=== PATIENT | male | born 1950 | race Caucasian/White ===

== ENCOUNTER 2018-06-28 16:30 | Inpatient (IN) | payer MEDICARE, OTHER ==
[~2018-06-28] VITALS: Ht 182.9 cm; Wt 110.0 kg
[~2018-06-28 16:30] MED LIST: ATOR40TA PO; DILT180C95 PO; FAMO20TA8 PO; LOSA1TAB15 PO; NAPR-56 PO; QUIN324C PO
[2018-06-28 16:54] LABS: CLARITY,URINE CLOUDY (Clear); COLOR,URINE YELLOW (Yellow); GLUCOSE, URINE NEGATIVE (Neg); KETONES,URINE NEGATIVE (Neg); LEUKOCYTE ESTERASE ,URINE TRACE (Neg); NITRITES, URINE NEGATIVE (Neg); OCCULT BLOOD,URINE MODERATE (Neg); PH,URINE 6.5 (4.8-8.0); PROTEIN,URINE TRACE mg/dl (Neg)
[2018-06-28 17:04] LABS: UA COLLECTION TYPE VOIDED
[2018-06-28 17:11] LABS: SQUAMOUS EPITHELIAL CELL,UR MANY /LPF (FEW)
[2018-06-28 17:14] LABS: BACTERIA,URINE 1+ /HPF (Neg); WBC CLUMPS,URINE FEW /HPF (NEGATIVE)
[2018-06-28 17:16] LABS: BASOPHILS # (AUTO) 0.1 X10'3 (0-0.2); BASOPHILS % (AUTO) 0.6 % (0-1); EOSINOPHILS # (AUTO) 0.2 X10'3 (0-0.9); EOSINOPHILS % (AUTO) 1.3 % (0-6); HEMATOCRIT 44.8 % (42.0-52.0); HEMOGLOBIN 14.3 g/dl (14.0-17.9); LYMPHOCYTES # (AUTO) 1.2 X10'3 (1.1-4.8); LYMPHOCYTES % (AUTO) 9.2 % (21-51); MEAN CORPUSCULAR HGB CONC 31.9 % (33.0-36.5); MEAN CORPUSCULAR VOLUME 90.9 FL (78-98); MEAN PLATELET VOLUME 7.3 FL (7.4-10.4); MONOCYTES # (AUTO) 1.8 X10'3 (0-0.9); MONOCYTES % (AUTO) 13.8 % (2-12); NEUTROPHILS # (AUTO) 9.9 X10'3 (1.8-7.7); NEUTROPHILS % (AUTO) 75.1 % (42-75); PLATELET COUNT 277 X10'3 (140-440); RED BLOOD COUNT 4.93 X10'6 (4.70-6.10); RED CELL DISTRIBUTION WIDTH 12.7 % (11.5-14.5); WHITE BLOOD COUNT 13.2 X10'3 (4.5-11.0)
[2018-06-28 17:31] LABS: INR 2.5 INR; PROTHROMBIN TIME 24.5 SECONDS (9.0-12.0)
[2018-06-28 17:43] LABS: ALANINE AMINOTRANSFERASE 21 U/L (12-78); ALBUMIN 3.1 G/DL (3.4-5.0); ALBUMIN/GLOBULIN RATIO 0.7 (1.1-1.5); ALKALINE PHOSPHATASE 76 IU/L (46-116); ANION GAP 8 (8-16); ASPARTATE AMINO TRANSFERASE 13 U/L (10-37); BILIRUBIN,TOTAL 0.5 MG/DL (0.1-1.0); BLOOD UREA NITROGEN 13 MG/DL (7-18); BUN/CREATININE RATIO 14.9 (5.4-32.0); CALCIUM 8.7 MG/DL (8.5-10.1); CHLORIDE 91 MMOL/L (99-107); CREATININE 0.87 MG/DL (0.60-1.10); GLUCOSE 121 MG/DL (70-104); LIPASE 58 U/L (73-393); POTASSIUM 3.3 MMOL/L (3.5-5.1); SODIUM 129 MMOL/L (135-145); TOTAL CARBON DIOXIDE 29.9 MMOL/L (24-32); TOTAL PROTEIN 7.4 G/DL (6.4-8.2); eGFR 88 ML/MIN
[2018-06-28] MEDS ORDERED: potassium Cl 20 mEq SR tablet PO ONE (18:10)
[2018-06-28] MEDS ORDERED: piperacillin/tazo 4.5gm/100ml 100 ML IV ONE (18:19)
[2018-06-28] MEDS ORDERED: normal saline 1000ML IV soln IV ONE (18:25)
--- NOTE | 2018-06-28 18:30 | NUR ---
pt given deaan. dr. olmos talking w patient and reprots he will need admission for appendicitis. also will need blood cultures.
--- NOTE | 2018-06-28 18:44 | NUR ---
bxc drawn, piv now in place,
--- NOTE | 2018-06-28 18:45 | NUR ---
dr. harris at bedside. pt with stable vs. at bedside also. verbal received for repeat inr. (last drawn at 1647 = 2.5)
[2018-06-28] MEDS ORDERED: morphine 4 MG/ML inj SYRINge IV PRN ×3 (18:50→21:15)
[2018-06-28] MEDS ORDERED: ondansetron/PF 4mg/2ml inj IV PRN (18:50)
[2018-06-28] MEDS ORDERED: labetalol 20mg/4ml (5mg/ml) syringe IV PRN (18:50)
[2018-06-28] MEDS ORDERED: ringers solution, lacted 1,000 ML IV SCH (18:50)
[2018-06-28] MEDS ORDERED: fentaNYL/PF 50MCG/1 ML 2ML syringe IV PRN (18:50)
[2018-06-28] MEDS ORDERED: hydrALAZINE 20mg/ml inj. IV PRN (18:50)
--- NOTE | 2018-06-28 18:50 | NUR ---
per dr. castillo, he will operate on pt tomorrow. he does not need a redraw of inr right now as we will redraw w am labs.
[2018-06-28] MEDS ORDERED: COU5T PO (18:55)
[2018-06-28] MEDS ORDERED: SOTA120T (18:57)
[2018-06-28] MEDS ORDERED: TAMS0.4C32 (18:57)
--- NOTE | 2018-06-28 19:12 | NUR ---
siria bernstein [phone] took all of patients clothes home
[2018-06-28] MEDS ORDERED: morphine 4 MG/ML inj SYRINge IV ONE ×2 (19:30→21:55)
[2018-06-28] MEDS ORDERED: ondansetron/PF 4mg/2ml inj IV ONE (19:30)
[2018-06-28] MEDS ORDERED: temazepam 15mg capsule PO PRN (21:00)
[2018-06-28] MEDS ORDERED: mag hydrox/Alum hydrox/simeth 30ml oral suspension PO PRN (21:15)
[2018-06-28] MEDS ORDERED: bisacodyl 10mg suppository rectal RC PRN (21:15)
[2018-06-28] MEDS ORDERED: potassium cl 20mEq in 1/2 NS 1,000 ML IV SCH (21:15)
[2018-06-28] MEDS ORDERED: acetaminophen 325mg tablet PO PRN ×2 (21:15)
[2018-06-28] MEDS ORDERED: magnesium hydroxide 30ml (MOM) UD suspension PO PRN (21:15)
[2018-06-28] MEDS ORDERED: acetaminophen 650mg rectal suppository RC PRN (21:15)
[2018-06-28] MEDS ORDERED: diphenhydrAMINE 50 mg/ml inj IV PRN (21:15)
[2018-06-28] MEDS ORDERED: diphenhydrAMINE 25mg capsule PO PRN (21:15)
[2018-06-28] MEDS ORDERED: potassium Cl 20 mEq SR tablet PO PRN ×2 (21:25)
[2018-06-28] MEDS: K, MAG and/or Phos replacement - Verify level? MC SCH (21:25)
[2018-06-28] MEDS ORDERED: potassium Cl 40MEQ/NS 500ml 500 ML IV PRN (21:25)
[2018-06-28] MEDS ORDERED: phytonadione inj. 5 MG in normal saline 100ml IV soln 99.5 ML IV ONE (21:40)
--- NOTE | 2018-06-28 21:45 | NUR ---
Received report from Maurizio RN, pt coming from ER.
[2018-06-28] MEDS: pantoprazole 40 MG vial IV SCH (22:03)
[2018-06-28 22:08] LABS: MAGNESIUM 1.6 MG/DL (1.5-2.4); PHOSPHORUS 2.5 MG/DL (2.3-4.5)
[2018-06-28 22:10] LABS: CLARITY,URINE CLEAR (Clear); COLOR,URINE YELLOW (Yellow); GLUCOSE, URINE NEGATIVE (Neg); KETONES,URINE NEGATIVE (Neg); LEUKOCYTE ESTERASE ,URINE SMALL (Neg); NITRITES, URINE NEGATIVE (Neg); OCCULT BLOOD,URINE MODERATE (Neg); PROTEIN,URINE NEGATIVE (Neg); UROBILINOGEN,URINE 0.2 E.U/dL (0.2-1.0)
[2018-06-28 22:16] LABS: UA COLLECTION TYPE CLN CATCH MIDSTREAM
[2018-06-28 22:20] LABS: SQUAMOUS EPITHELIAL CELL,UR MODERATE /LPF (FEW)
[2018-06-28 22:21] LABS: BACTERIA,URINE FEW /HPF (Neg)
[2018-06-28 22:37] VITALS: BP 140/61
[2018-06-28] MEDS: potassium Cl 20mEq in NS 1,000 ML IV SCH (22:51)
[2018-06-28] MEDS: piperacillin/tazo 4.5gm/100ml 100 ML IV SCH (23:54)
[2018-06-29] VITALS (19 sets, daily range): BP systolic 112–140; BP diastolic 40–113
--- NOTE | 2018-06-29 06:28 | NUR ---
Problems reprioritized. Patient report given, questions answered & plan of care reviewed with Melissa MOELLER.
--- NOTE | 2018-06-29 06:33 | NUR ---
Patient in room [facility]. I have received report from Kelly MOELLER and had the opportunity to ask questions and assume patient care.
[2018-06-29 06:41] LABS: INR 1.5 INR; PROTHROMBIN TIME 14.5 SECONDS (9.0-12.0)
[2018-06-29] MEDS ORDERED: LOSARTAN PO SCH (08:00)
[2018-06-29] MEDS: K, MAG and/or Phos replacement - Verify level? MC SCH (08:00)
[2018-06-29] MEDS ORDERED: HYDROCHLOROTHIAZIDE PO SCH (08:00)
[2018-06-29] MEDS ORDERED: SOTALOL HCL SCH (08:00)
[2018-06-29] MEDS: piperacillin/tazo 4.5gm/100ml 100 ML IV SCH ×3 (08:42→23:46)
[2018-06-29] MEDS: tamsulosin 0.4mg capsule PO SCH (08:42)
[2018-06-29] MEDS: losartan 50mg tablet PO SCH (08:43)
[2018-06-29] MEDS: HYDROchlorothiazide 25mg tablet PO SCH (08:43)
[2018-06-29] MEDS: docusate sod 100mg capsule PO SCH ×2 (08:43→20:21)
[2018-06-29] MEDS: pantoprazole 40 MG vial IV SCH (08:44)
[2018-06-29] MEDS: sotalol 80mg tablet PO SCH ×2 (08:44→20:21)
[2018-06-29] MEDS: potassium Cl 20mEq in NS 1,000 ML IV SCH ×3 (09:07→23:47)
[2018-06-29] MEDS ORDERED: BUPIVAcaine/PF 2.5mg/ml (0.25%) 10ml vial ONE (09:19)
[2018-06-29] MEDS ORDERED: midazolam 2 mg/2 ml injection ONE (09:40)
[2018-06-29] MEDS ORDERED: fentaNYL/PF 50MCG/1 ML 2ML syringe ONE (09:40)
[2018-06-29] MEDS ORDERED: sevoflurane 250ml liquid IH ONE (10:44)
[2018-06-29] MEDS ORDERED: ondansetron/PF 4mg/2ml inj ONE (11:01)
[2018-06-29] MEDS ORDERED: propofol inj 20 ML IV ONE (11:01)
[2018-06-29] MEDS ORDERED: LIDOcaine 2% (20mg/ml) 5ml vial ONE (11:01)
[2018-06-29] MEDS ORDERED: dexamethasone sod phosphate 4mg/ml inj. ONE (11:01)
[2018-06-29] MEDS ORDERED: rocuronium 10mg/ml inj IV ONE (11:02)
[2018-06-29] MEDS ORDERED: clindamycin phosphate 150mg/ml inj. ONE (11:34)
[2018-06-29] MEDS ORDERED: gentamicin 40 MG/1 ML inj IJ ONE (11:40)
[2018-06-29] MEDS ORDERED: glycopyrrolate 0.2mg/ml inj ONE (11:42)
[2018-06-29] MEDS ORDERED: neostigmine methylsulfate 1 MG/ML 10ml vial ONE (11:42)
--- NOTE | 2018-06-29 12:25 | NUR ---
Received from OR via bed, accompanied by Anesthesiologist. Report received. Initial physical assessment done and recorded.
[2018-06-29] MEDS: fentaNYL/PF 50MCG/1 ML 2ML syringe IV PRN ×2 (13:10→13:21)
--- NOTE | 2018-06-29 13:35 | NUR ---
Discharge criteria met, discharge instructions given, demonstrates verbal understanding. Discharged home in good condition.
[2018-06-29] MEDS: HYDROmorphone 1 mg/ml syringe IV PRN (13:48)
--- NOTE | 2018-06-29 14:00 | NUR ---
Patient in room [facility]. I have received report from biomedical scientist and had the opportunity to ask questions and assume patient care.
--- NOTE | 2018-06-29 15:31 | NUR ---
patient back from OR following Appendectomy. lei in place, draining serosang. VSS. Midline to abdomen CDI.
[2018-06-29 16:12] LABS: BASOPHILS % (AUTO) 0 % (0-1); EOSINOPHILS % (AUTO) 0.1 % (0-6); HEMATOCRIT 42.2 % (42.0-52.0); HEMOGLOBIN 13.8 g/dl (14.0-17.9); LYMPHOCYTES # (AUTO) 0.4 X10'3 (1.1-4.8); LYMPHOCYTES % (AUTO) 2.2 % (21-51); MEAN CORPUSCULAR HGB CONC 32.8 % (33.0-36.5); MEAN CORPUSCULAR VOLUME 91.5 FL (78-98); MEAN PLATELET VOLUME 7.1 FL (7.4-10.4); MONOCYTES # (AUTO) 0.8 X10'3 (0-0.9); MONOCYTES % (AUTO) 4.8 % (2-12); NEUTROPHILS # (AUTO) 16.2 X10'3 (1.8-7.7); NEUTROPHILS % (AUTO) 92.9 % (42-75); PLATELET COUNT 240 X10'3 (140-440); RED BLOOD COUNT 4.61 X10'6 (4.70-6.10); WHITE BLOOD COUNT 17.4 X10'3 (4.5-11.0)
[2018-06-29 16:21] LABS: ALBUMIN 2.4 G/DL (3.4-5.0); ANION GAP 10 (8-16); BLOOD UREA NITROGEN 12 MG/DL (7-18); BUN/CREATININE RATIO 13.8 (5.4-32.0); CALCIUM 8.2 MG/DL (8.5-10.1); CHLORIDE 98 MMOL/L (99-107); CREATININE 0.87 MG/DL (0.60-1.10); GLUCOSE 133 MG/DL (70-104); POTASSIUM 4.4 MMOL/L (3.5-5.1); SODIUM 135 MMOL/L (135-145); TOTAL CARBON DIOXIDE 26.9 MMOL/L (24-32); eGFR 88 ML/MIN
[2018-06-29] MEDS: HYDROcodone/acetaminophen 10/325mg tab PO PRN (16:28)
--- NOTE | 2018-06-29 17:49 | NUR ---
temp 101.1 given tylenol see emAR will continue to monitor.
--- NOTE | 2018-06-29 18:12 | NUR ---
Problems reprioritized. Patient report given, questions answered & plan of care reviewed with Bo MOELLER.
--- NOTE | 2018-06-29 18:13 | NUR ---
Patient in room [facility]. I have received report from JOSEPH MOELLER and had the opportunity to ask questions and assume patient care.
[2018-06-29] MEDS: lactobacillus rhamnosus 10,000 MMU CELLS/CAPSULE PO SCH (20:20)
[2018-06-29] MEDS: atorvastatin 20mg tablet PO SCH (20:21)
[2018-06-29] MEDS ORDERED: non-formulary drug (Atorvastatin Calcium* (Lipitor*) 1 TAB) PO SCH (21:00)
[2018-06-30] VITALS: BP 127/53
[2018-06-30 04:00] VITALS: BP 107/52
--- NOTE | 2018-06-30 06:30 | NUR ---
Problems reprioritized. Patient report given, questions answered & plan of care reviewed with JOSEPH MOELLER.
--- NOTE | 2018-06-30 06:40 | NUR ---
Patient in room [facility]. I have received report from Bo MOELLER and had the opportunity to ask questions and assume patient care.
[2018-06-30 07:00] VITALS: BP 113/57
[2018-06-30 07:11] LABS: BASOPHILS % (AUTO) 0 % (0-1); EOSINOPHILS # (AUTO) 0.3 X10'3 (0-0.9); EOSINOPHILS % (AUTO) 1.4 % (0-6); HEMATOCRIT 38.3 % (42.0-52.0); HEMOGLOBIN 12.8 g/dl (14.0-17.9); LYMPHOCYTES # (AUTO) 0.6 X10'3 (1.1-4.8); MEAN CORPUSCULAR HEMOGLOBIN 30.2 PG (27.0-31.0); MEAN CORPUSCULAR HGB CONC 33.2 % (33.0-36.5); MEAN CORPUSCULAR VOLUME 90.9 FL (78-98); MEAN PLATELET VOLUME 7.8 FL (7.4-10.4); MONOCYTES # (AUTO) 1.3 X10'3 (0-0.9); MONOCYTES % (AUTO) 7.1 % (2-12); NEUTROPHILS # (AUTO) 16.6 X10'3 (1.8-7.7); NEUTROPHILS % (AUTO) 88.5 % (42-75); PLATELET COUNT 243 X10'3 (140-440); RED BLOOD COUNT 4.22 X10'6 (4.70-6.10); RED CELL DISTRIBUTION WIDTH 13.9 % (11.5-14.5); WHITE BLOOD COUNT 18.8 X10'3 (4.5-11.0)
[2018-06-30] MEDS: losartan 50mg tablet PO SCH (07:32)
[2018-06-30] MEDS: sotalol 80mg tablet PO SCH ×2 (07:32→20:16)
[2018-06-30] MEDS: pantoprazole 40 MG vial IV SCH (07:33)
[2018-06-30] MEDS: tamsulosin 0.4mg capsule PO SCH (07:33)
[2018-06-30] MEDS: lactobacillus rhamnosus 10,000 MMU CELLS/CAPSULE PO SCH ×2 (07:33→20:16)
[2018-06-30] MEDS: docusate sod 100mg capsule PO SCH ×2 (07:33→20:17)
[2018-06-30] MEDS: HYDROchlorothiazide 25mg tablet PO SCH (07:33)
[2018-06-30] MEDS: HYDROmorphone 1 mg/ml syringe IV PRN (07:34)
[2018-06-30] MEDS: piperacillin/tazo 4.5gm/100ml 100 ML IV SCH ×3 (07:41→23:22)
[2018-06-30] MEDS: HYDROcodone/acetaminophen 10/325mg tab PO PRN ×2 (11:57→17:44)
[2018-06-30 12:40] VITALS: BP 112/46
[2018-06-30] MEDS: potassium Cl 20mEq in NS 1,000 ML IV SCH (14:42)
--- NOTE | 2018-06-30 15:17 | NUR ---
patient was seen by DR Kang. order for dressing to be changed. Dressing changed wet to dry, to abdominal incision laura intact. MARU drain draining small amount of serosang drainage. patient appears comfortable. Has ambulated x1.
--- NOTE | 2018-06-30 18:00 | NUR ---
patient was unable to void for [address] Carson called. Order to straight cath. patient before this able to void 350mls. patient ambulating at present with will recheck PVR when returns to room. 55mls out of MARU.
--- NOTE | 2018-06-30 18:18 | NUR ---
PVD 350mls report given to Bo De Leon RN.
--- NOTE | 2018-06-30 18:19 | NUR ---
Patient in room [facility]. I have received report from JOSEPH MOELLER and had the opportunity to ask questions and assume patient care.
[2018-06-30 19:00] VITALS: BP 110/62
[2018-06-30] MEDS: atorvastatin 20mg tablet PO SCH (20:15)
[2018-06-30] MEDS: enoxaparin 30mg/0.3ml syringe SUBCUT SCH (20:18)
[2018-07-01] VITALS: BP 110/64
[2018-07-01] MEDS: potassium Cl 20mEq in NS 1,000 ML IV SCH ×3 (02:31→20:18)
[2018-07-01 05:34] LABS: BASOPHILS % (AUTO) 0.2 % (0-1); EOSINOPHILS # (AUTO) 0.3 X10'3 (0-0.9); EOSINOPHILS % (AUTO) 1.7 % (0-6); HEMATOCRIT 40.1 % (42.0-52.0); LYMPHOCYTES # (AUTO) 0.7 X10'3 (1.1-4.8); LYMPHOCYTES % (AUTO) 3.6 % (21-51); MEAN CORPUSCULAR HEMOGLOBIN 29.6 PG (27.0-31.0); MEAN CORPUSCULAR HGB CONC 32.3 % (33.0-36.5); MEAN CORPUSCULAR VOLUME 91.4 FL (78-98); MEAN PLATELET VOLUME 7.7 FL (7.4-10.4); MONOCYTES # (AUTO) 1.3 X10'3 (0-0.9); MONOCYTES % (AUTO) 6.9 % (2-12); NEUTROPHILS % (AUTO) 87.6 % (42-75); PLATELET COUNT 268 X10'3 (140-440); RED BLOOD COUNT 4.39 X10'6 (4.70-6.10); RED CELL DISTRIBUTION WIDTH 13.9 % (11.5-14.5); WHITE BLOOD COUNT 19.4 X10'3 (4.5-11.0)
--- NOTE | 2018-07-01 06:09 | NUR ---
Problems reprioritized. Patient report given, questions answered & plan of care reviewed with JOSEPH MOELLER.
--- NOTE | 2018-07-01 06:15 | NUR ---
Patient in room [facility]. I have received report from Bo MOELLER and had the opportunity to ask questions and assume patient care.
[2018-07-01 07:00] VITALS: BP 128/75
[2018-07-01] MEDS: piperacillin/tazo 4.5gm/100ml 100 ML IV SCH ×2 (07:22→15:58)
[2018-07-01] MEDS: HYDROchlorothiazide 25mg tablet PO SCH (07:22)
[2018-07-01] MEDS: docusate sod 100mg capsule PO SCH ×2 (07:22→19:14)
[2018-07-01] MEDS: tamsulosin 0.4mg capsule PO SCH (07:22)
[2018-07-01] MEDS: losartan 50mg tablet PO SCH (07:22)
[2018-07-01] MEDS: pantoprazole 40 MG vial IV SCH (07:22)
[2018-07-01] MEDS: lactobacillus rhamnosus 10,000 MMU CELLS/CAPSULE PO SCH ×2 (07:23→19:13)
[2018-07-01] MEDS: HYDROmorphone 1 mg/ml syringe IV PRN (07:23)
[2018-07-01] MEDS: sotalol 80mg tablet PO SCH ×2 (07:30→19:15)
[2018-07-01] MEDS: enoxaparin 30mg/0.3ml syringe SUBCUT SCH ×2 (08:14→19:17)
[2018-07-01] MEDS ORDERED: VANCOMYCIN LEVEL IV ONE (08:30)
[2018-07-01 11:15] VITALS: BP 127/69
[2018-07-01] MEDS: ondansetron/PF 4mg/2ml inj IV PRN (14:40)
[2018-07-01] MEDS: HYDROcodone/acetaminophen 10/325mg tab PO PRN ×2 (14:43→19:14)
--- NOTE | 2018-07-01 18:29 | NUR ---
Patient in room [facility]. I have received report from Melissa MOELLER and had the opportunity to ask questions and assume patient care. Pt was ambulating in the marc with his . Currently no signs of distress. Will continue to monitor.
--- NOTE | 2018-07-01 18:31 | NUR ---
Problems reprioritized. Patient report given, questions answered & plan of care reviewed with ivana ramos.
[2018-07-01 20:00] VITALS: BP 111/68
[2018-07-01] MEDS: atorvastatin 20mg tablet PO SCH (20:49)
[2018-07-02] VITALS: BP 123/68
[2018-07-02] MEDS: piperacillin/tazo 4.5gm/100ml 100 ML IV SCH ×3 (00:27→15:59)
[2018-07-02] MEDS: HYDROcodone/acetaminophen 10/325mg tab PO PRN ×3 (00:33→20:06)
--- NOTE | 2018-07-02 06:37 | NUR ---
Problems reprioritized. Patient report given, questions answered & plan of care reviewed with Tarsha MOELLER. Pt is sitting up in bed with no signs of distress.
[2018-07-02 07:30] VITALS: BP 110/62
[2018-07-02 07:34] LABS: BASOPHILS % (AUTO) 0.1 % (0-1); EOSINOPHILS # (AUTO) 0.1 X10'3 (0-0.9); EOSINOPHILS % (AUTO) 0.4 % (0-6); HEMATOCRIT 40.1 % (42.0-52.0); HEMOGLOBIN 13.1 g/dl (14.0-17.9); LYMPHOCYTES # (AUTO) 0.8 X10'3 (1.1-4.8); LYMPHOCYTES % (AUTO) 3.8 % (21-51); MEAN CORPUSCULAR HEMOGLOBIN 29.9 PG (27.0-31.0); MEAN CORPUSCULAR HGB CONC 32.8 % (33.0-36.5); MEAN CORPUSCULAR VOLUME 91.1 FL (78-98); MEAN PLATELET VOLUME 7.7 FL (7.4-10.4); MONOCYTES # (AUTO) 1.6 X10'3 (0-0.9); MONOCYTES % (AUTO) 7.3 % (2-12); NEUTROPHILS # (AUTO) 18.9 X10'3 (1.8-7.7); NEUTROPHILS % (AUTO) 88.4 % (42-75); PLATELET COUNT 346 X10'3 (140-440); RED BLOOD COUNT 4.41 X10'6 (4.70-6.10); WHITE BLOOD COUNT 21.4 X10'3 (4.5-11.0)
[2018-07-02] MEDS: docusate sod 100mg capsule PO SCH ×2 (08:45→20:05)
[2018-07-02] MEDS: losartan 50mg tablet PO SCH (08:45)
[2018-07-02] MEDS: lactobacillus rhamnosus 10,000 MMU CELLS/CAPSULE PO SCH ×2 (08:46→20:05)
[2018-07-02] MEDS: tamsulosin 0.4mg capsule PO SCH (08:46)
[2018-07-02] MEDS: sotalol 80mg tablet PO SCH ×2 (08:46→20:08)
[2018-07-02] MEDS: HYDROchlorothiazide 25mg tablet PO SCH (08:46)
[2018-07-02] MEDS: pantoprazole 40 MG vial IV SCH (08:46)
[2018-07-02] MEDS: enoxaparin 30mg/0.3ml syringe SUBCUT SCH ×2 (08:47→20:09)
[2018-07-02] MEDS: potassium Cl 20mEq in NS 1,000 ML IV SCH ×2 (08:48→16:03)
[2018-07-02 12:00] VITALS: BP 128/72
--- NOTE | 2018-07-02 18:49 | NUR ---
Patient in room [facility]. I have received report from Tarsha MOELLER and had the opportunity to ask questions and assume patient care. Pt sitting up in bed with at bedside. No signs of distress, will continue to monitor.
[2018-07-02 19:00] VITALS: BP 103/56
[2018-07-02] MEDS ORDERED: diatr meglu/diatrizoate 30ml oral sol.-(3 dose) bottle PO ONE (20:00)
[2018-07-02] MEDS: atorvastatin 20mg tablet PO SCH (20:06)
[2018-07-03] VITALS: BP 110/62
[2018-07-03] MEDS: piperacillin/tazo 4.5gm/100ml 100 ML IV SCH ×4 (00:17→23:57)
[2018-07-03] MEDS: HYDROcodone/acetaminophen 10/325mg tab PO PRN ×3 (00:19→21:05)
[2018-07-03] MEDS ORDERED: diatr meglu/diatrizoate 30ml oral sol.-(3 dose) bottle PO PRN ×2 (00:30→08:35)
[2018-07-03] MEDS: potassium Cl 20mEq in NS 1,000 ML IV SCH ×3 (02:49→21:32)
[2018-07-03 05:34] LABS: BASOPHILS % (AUTO) 0.2 % (0-1); EOSINOPHILS # (AUTO) 0.2 X10'3 (0-0.9); EOSINOPHILS % (AUTO) 1.3 % (0-6); HEMATOCRIT 36.7 % (42.0-52.0); HEMOGLOBIN 12.2 g/dl (14.0-17.9); LYMPHOCYTES # (AUTO) 0.8 X10'3 (1.1-4.8); LYMPHOCYTES % (AUTO) 4.4 % (21-51); MEAN CORPUSCULAR HEMOGLOBIN 30.1 PG (27.0-31.0); MEAN CORPUSCULAR HGB CONC 33.2 % (33.0-36.5); MEAN CORPUSCULAR VOLUME 90.6 FL (78-98); MEAN PLATELET VOLUME 7.3 FL (7.4-10.4); MONOCYTES # (AUTO) 1.6 X10'3 (0-0.9); MONOCYTES % (AUTO) 8.2 % (2-12); NEUTROPHILS # (AUTO) 16.2 X10'3 (1.8-7.7); NEUTROPHILS % (AUTO) 85.9 % (42-75); PLATELET COUNT 335 X10'3 (140-440); RED BLOOD COUNT 4.05 X10'6 (4.70-6.10); RED CELL DISTRIBUTION WIDTH 13.7 % (11.5-14.5); WHITE BLOOD COUNT 18.8 X10'3 (4.5-11.0)
--- NOTE | 2018-07-03 06:37 | NUR ---
Problems reprioritized. Patient report given, questions answered & plan of care reviewed with Tarsha MOELLER. Pt sitting up in bed having vitals taken. No signs of distress.
[2018-07-03 07:43] VITALS: BP 110/61
[2018-07-03] MEDS: sotalol 80mg tablet PO SCH ×2 (08:30→21:06)
[2018-07-03] MEDS: pantoprazole 40 MG vial IV SCH (08:30)
[2018-07-03] MEDS: HYDROchlorothiazide 25mg tablet PO SCH (08:31)
[2018-07-03] MEDS: docusate sod 100mg capsule PO SCH ×2 (08:31→21:04)
[2018-07-03] MEDS: tamsulosin 0.4mg capsule PO SCH (08:31)
[2018-07-03] MEDS: losartan 50mg tablet PO SCH (08:31)
[2018-07-03] MEDS: lactobacillus rhamnosus 10,000 MMU CELLS/CAPSULE PO SCH ×2 (08:31→21:04)
[2018-07-03] MEDS: enoxaparin 30mg/0.3ml syringe SUBCUT SCH ×2 (08:32→19:21)
[2018-07-03] MEDS ORDERED: diatrozoate meglu/diatrozoate sod (37% iodine) 120ML oral solution PO ONE (08:35)
[2018-07-03] MEDS ORDERED: diatr meglu/diatrizoate 30ml oral sol.-(3 dose) bottle PO ONE (08:45)
[2018-07-03] MEDS ORDERED: iohexol 300mg/ml 100ml inj. ONE (09:50)
--- NOTE | 2018-07-03 09:50 | NUR ---
Initial: Pt admitted with acute appendicitis, now s/p open appendectomy with post op ileus, however pt passing gas per MD notes. Pt previously on clear liquid diet with good PO intake, diet just advanced to full, pending PO. LBM 06/30, with routine Colace. No edema. Will continue to follow. Recommendations: 1) Advance diet to heart healthy as medically indicated 2) Monitor need for additional bowel care 3) Wt per rx Addendum: 07/03/18 at [address] Amended: Links added.
[2018-07-03 12:00] VITALS: BP 118/51
--- NOTE | 2018-07-03 18:15 | NUR ---
Patient in room [facility]. I have received report from Tarsha MOELLER and had the opportunity to ask questions and assume patient care. Pt resting comfortably in bed. Will continue to monitor.
[2018-07-03] MEDS: ondansetron/PF 4mg/2ml inj IV PRN (19:16)
[2018-07-03 20:00] VITALS: BP 130/70
[2018-07-03] MEDS: atorvastatin 20mg tablet PO SCH (21:05)
[2018-07-03 23:48] VITALS: BP 117/63
[2018-07-04] MEDS: metoclopramide 5 mg/ml inj IV SCH ×4 (02:12→20:56)
[2018-07-04] MEDS: potassium Cl 20mEq in NS 1,000 ML IV SCH ×2 (02:12→17:54)
[2018-07-04] MEDS: HYDROcodone/acetaminophen 10/325mg tab PO PRN ×2 (02:19→20:58)
[2018-07-04 04:53] LABS: BASOPHILS # (AUTO) 0.1 X10'3 (0-0.2); BASOPHILS % (AUTO) 0.3 % (0-1); EOSINOPHILS # (AUTO) 0.4 X10'3 (0-0.9); EOSINOPHILS % (AUTO) 2.5 % (0-6); HEMATOCRIT 34.8 % (42.0-52.0); HEMOGLOBIN 11.7 g/dl (14.0-17.9); LYMPHOCYTES # (AUTO) 1.1 X10'3 (1.1-4.8); LYMPHOCYTES % (AUTO) 6.2 % (21-51); MEAN CORPUSCULAR HEMOGLOBIN 30.7 PG (27.0-31.0); MEAN CORPUSCULAR HGB CONC 33.7 % (33.0-36.5); MEAN CORPUSCULAR VOLUME 91.1 FL (78-98); MEAN PLATELET VOLUME 7.4 FL (7.4-10.4); MONOCYTES # (AUTO) 1.5 X10'3 (0-0.9); MONOCYTES % (AUTO) 8.9 % (2-12); NEUTROPHILS # (AUTO) 13.9 X10'3 (1.8-7.7); NEUTROPHILS % (AUTO) 82.1 % (42-75); PLATELET COUNT 325 X10'3 (140-440); RED BLOOD COUNT 3.82 X10'6 (4.70-6.10); RED CELL DISTRIBUTION WIDTH 13.1 % (11.5-14.5)
--- NOTE | 2018-07-04 06:22 | NUR ---
Problems reprioritized. Patient report given, questions answered & plan of care reviewed with Lila MOELLER. Pt was laying in bed comfortably sleeping with no signs of distress.
[2018-07-04 07:00] VITALS: BP 115/57
[2018-07-04] MEDS: enoxaparin 30mg/0.3ml syringe SUBCUT SCH ×2 (07:36→20:57)
[2018-07-04] MEDS: piperacillin/tazo 4.5gm/100ml 100 ML IV SCH ×3 (07:36→23:34)
[2018-07-04] MEDS: lactobacillus rhamnosus 10,000 MMU CELLS/CAPSULE PO SCH ×2 (07:37→20:56)
[2018-07-04] MEDS: losartan 50mg tablet PO SCH (07:37)
[2018-07-04] MEDS: pantoprazole 40 MG vial IV SCH (07:37)
[2018-07-04] MEDS: sotalol 80mg tablet PO SCH ×2 (07:37→20:56)
[2018-07-04] MEDS: docusate sod 100mg capsule PO SCH ×2 (07:37→20:57)
[2018-07-04] MEDS: tamsulosin 0.4mg capsule PO SCH (07:37)
[2018-07-04] MEDS: HYDROchlorothiazide 25mg tablet PO SCH (07:37)
--- NOTE | 2018-07-04 07:52 | NUR ---
checked dressing, positive bowel sounds
[2018-07-04 11:00] VITALS: BP 123/65
--- NOTE | 2018-07-04 17:56 | NUR ---
RECEIVED REPORT FROM PAULINE MOELLER
--- NOTE | 2018-07-04 18:09 | NUR ---
GAVE REPORT TO GUY MOELLER
--- NOTE | 2018-07-04 18:10 | NUR ---
Patient in room [facility]. I have received report from Lila MOELLER and had the opportunity to ask questions and assume patient care.
[2018-07-04 19:00] VITALS: BP 130/68
--- NOTE | 2018-07-04 19:00 | NUR ---
Patient states he drank some broth and an apple juice for dinner. Addendum: 07/04/18 at 2314 by Angie Madrid RN Amended: Links added.
--- NOTE | 2018-07-04 19:00 | NUR ---
This PIv is actually in the left wrist dated 07/02 infusing NS with 20K at TKO Addendum: 07/04/18 at 2316 by Angie Madrid RN Amended: Links added.
[2018-07-04] MEDS: atorvastatin 20mg tablet PO SCH (20:58)
[2018-07-04 21:00] VITALS: BP 145/76
[2018-07-04] MEDS: ondansetron/PF 4mg/2ml inj IV PRN (22:37)
[2018-07-04 23:30] VITALS: BP 142/66
[2018-07-05] MEDS: metoclopramide 5 mg/ml inj IV SCH ×4 (01:48→20:05)
[2018-07-05] MEDS: potassium Cl 20mEq in NS 1,000 ML IV SCH ×2 (01:55→12:47)
--- NOTE | 2018-07-05 06:50 | NUR ---
Patient in room [facility]. I have received report from SAJAN Adams and had the opportunity to ask questions and assume patient care.
--- NOTE | 2018-07-05 06:54 | NUR ---
Problems reprioritized. Patient report given, questions answered & plan of care reviewed with Tabitha MOELLER.
[2018-07-05 07:30] VITALS: BP 124/68
[2018-07-05 08:15] LABS: BASOPHILS # (AUTO) 0.3 X10'3 (0-0.2); BASOPHILS % (AUTO) 1.7 % (0-1); EOSINOPHILS # (AUTO) 0.1 X10'3 (0-0.9); HEMATOCRIT 39.8 % (42.0-52.0); LYMPHOCYTES # (AUTO) 0.8 X10'3 (1.1-4.8); LYMPHOCYTES % (AUTO) 5.5 % (21-51); MEAN CORPUSCULAR HEMOGLOBIN 30.1 PG (27.0-31.0); MEAN CORPUSCULAR HGB CONC 32.7 % (33.0-36.5); MEAN CORPUSCULAR VOLUME 92.1 FL (78-98); MEAN PLATELET VOLUME 6.9 FL (7.4-10.4); MONOCYTES # (AUTO) 1.4 X10'3 (0-0.9); MONOCYTES % (AUTO) 9.3 % (2-12); NEUTROPHILS # (AUTO) 12.3 X10'3 (1.8-7.7); NEUTROPHILS % (AUTO) 82.5 % (42-75); PLATELET COUNT 431 X10'3 (140-440); RED BLOOD COUNT 4.32 X10'6 (4.70-6.10); WHITE BLOOD COUNT 14.9 X10'3 (4.5-11.0)
[2018-07-05] MEDS: piperacillin/tazo 4.5gm/100ml 100 ML IV SCH ×3 (10:08→23:06)
[2018-07-05] MEDS: pantoprazole 40 MG vial IV SCH (10:08)
[2018-07-05] MEDS: HYDROchlorothiazide 25mg tablet PO SCH (10:09)
[2018-07-05] MEDS: lactobacillus rhamnosus 10,000 MMU CELLS/CAPSULE PO SCH ×2 (10:09→23:02)
[2018-07-05] MEDS: docusate sod 100mg capsule PO SCH ×2 (10:09→23:02)
[2018-07-05] MEDS: losartan 50mg tablet PO SCH (10:09)
[2018-07-05] MEDS: sotalol 80mg tablet PO SCH ×2 (10:09→23:02)
[2018-07-05] MEDS: tamsulosin 0.4mg capsule PO SCH (10:09)
[2018-07-05] MEDS: enoxaparin 30mg/0.3ml syringe SUBCUT SCH ×2 (10:10→23:04)
[2018-07-05] MEDS: methylnaltrexone br 12mg/0.6ml inj***SubQ only SQ SCH (10:11)
[2018-07-05 12:01] VITALS: BP 134/66
--- NOTE | 2018-07-05 18:50 | NUR ---
Problems reprioritized. Patient report given, questions answered & plan of care reviewed with SAJAN Adams.
--- NOTE | 2018-07-05 18:58 | NUR ---
Patient in room [facility]. I have received report from Tabitha MOELLER and had the opportunity to ask questions and assume patient care.
[2018-07-05 19:30] VITALS: BP 142/65
--- NOTE | 2018-07-05 19:45 | NUR ---
Patient did not want to drink anything on his tray tonight as was feeling nauseated. Addendum: 07/05/18 at 2331 by Angie Madrid RN Amended: Links added.
[2018-07-05] MEDS: ondansetron/PF 4mg/2ml inj IV PRN (20:02)
[2018-07-05 22:50] VITALS: BP 145/72
[2018-07-05] MEDS: atorvastatin 20mg tablet PO SCH (23:02)
[2018-07-06] VITALS: BP 148/60
[2018-07-06] MEDS: metoclopramide 5 mg/ml inj IV SCH ×4 (02:22→20:00)
[2018-07-06 05:15] LABS: BASOPHILS % (AUTO) 0.3 % (0-1); EOSINOPHILS # (AUTO) 0.2 X10'3 (0-0.9); EOSINOPHILS % (AUTO) 1.6 % (0-6); HEMATOCRIT 36.5 % (42.0-52.0); LYMPHOCYTES # (AUTO) 0.6 X10'3 (1.1-4.8); LYMPHOCYTES % (AUTO) 6.1 % (21-51); MEAN CORPUSCULAR HEMOGLOBIN 30.2 PG (27.0-31.0); MEAN CORPUSCULAR HGB CONC 32.9 % (33.0-36.5); MEAN CORPUSCULAR VOLUME 91.9 FL (78-98); MEAN PLATELET VOLUME 7.1 FL (7.4-10.4); MONOCYTES # (AUTO) 1.3 X10'3 (0-0.9); MONOCYTES % (AUTO) 12.5 % (2-12); NEUTROPHILS # (AUTO) 8.3 X10'3 (1.8-7.7); NEUTROPHILS % (AUTO) 79.5 % (42-75); PLATELET COUNT 374 X10'3 (140-440); RED BLOOD COUNT 3.97 X10'6 (4.70-6.10); RED CELL DISTRIBUTION WIDTH 13.1 % (11.5-14.5); WHITE BLOOD COUNT 10.4 X10'3 (4.5-11.0)
--- NOTE | 2018-07-06 06:07 | NUR ---
Problems reprioritized. Patient report given, questions answered & plan of care reviewed with Tabitha MOELLER.
--- NOTE | 2018-07-06 06:24 | NUR ---
Patient in room [facility]. I have received report from SAJAN Adams and had the opportunity to ask questions and assume patient care.
[2018-07-06 07:32] VITALS: BP 162/74
[2018-07-06] MEDS: potassium Cl 20mEq in NS 1,000 ML IV SCH (08:46)
[2018-07-06] MEDS: piperacillin/tazo 4.5gm/100ml 100 ML IV SCH ×2 (08:46→15:32)
[2018-07-06] MEDS: enoxaparin 30mg/0.3ml syringe SUBCUT SCH ×2 (08:47→20:09)
[2018-07-06] MEDS: sotalol 80mg tablet PO SCH ×2 (08:47→20:10)
[2018-07-06] MEDS: HYDROchlorothiazide 25mg tablet PO SCH (08:47)
[2018-07-06] MEDS: pantoprazole 40 MG vial IV SCH (08:47)
[2018-07-06] MEDS: tamsulosin 0.4mg capsule PO SCH (08:48)
[2018-07-06] MEDS: losartan 50mg tablet PO SCH (08:48)
[2018-07-06] MEDS: docusate sod 100mg capsule PO SCH ×2 (08:48→19:58)
[2018-07-06] MEDS: lactobacillus rhamnosus 10,000 MMU CELLS/CAPSULE PO SCH ×2 (08:48→20:11)
[2018-07-06 11:51] VITALS: BP 151/64
[2018-07-06] MEDS ORDERED: magnesium 4gm in 100ml NS 100 ML IV PRN (13:45)
[2018-07-06] MEDS ORDERED: magnesium 2GM in 50ml NS 50 ML IV PRN (13:45)
[2018-07-06] MEDS ORDERED: magnesium Cl slow-release 64mg tablet PO PRN (13:45)
--- NOTE | 2018-07-06 14:27 | NUR ---
PPN consult: Patient continues with post-op ileus with LBM 06/30. PPN recommendations below, d/w pharmacy. Unable to meet patient's estimated nutrient needs with PPN. Patient's diet has been reduced back to clear liquid diet. Relistor and Reglan recently added to bowel care regime. Recommend continuing with liquid diet in order to stimulate GI tract while receiving bowel care. Will continue to follow. Recommendations: 1) PPN with 3:1 Clinimix E 4.25/10 2L bag with 200 mL 20% intralipids with goal rate of 115 mL/hr to provide: total volume 2760 mL/day, 1824 kcal, 117 g protein, 251 g dext. Dextrose load 1.58 mg/kg/min 2) Prealbumin q / 3) Daily wt 4) Advance diet to heart healthy as medically indicated 5) Monitor need for additional bowel care Addendum: 07/06/18 at [address] Amended: Links added.
[2018-07-06 14:53] LABS: ALANINE AMINOTRANSFERASE 59 U/L (12-78); ALBUMIN 2.1 G/DL (3.4-5.0); ALBUMIN/GLOBULIN RATIO 0.6 (1.1-1.5); ALKALINE PHOSPHATASE 61 IU/L (46-116); ANION GAP 10 (8-16); ASPARTATE AMINO TRANSFERASE 64 U/L (10-37); BILIRUBIN,TOTAL 0.5 MG/DL (0.1-1.0); BLOOD UREA NITROGEN 19 MG/DL (7-18); BUN/CREATININE RATIO 18.1 (5.4-32.0); CALCIUM 8.3 MG/DL (8.5-10.1); CHLORIDE 102 MMOL/L (99-107); CREATININE 1.05 MG/DL (0.60-1.10); GLUCOSE 102 MG/DL (70-104); MAGNESIUM 1.5 MG/DL (1.5-2.4); PHOSPHORUS 2.8 MG/DL (2.3-4.5); POTASSIUM 3.8 MMOL/L (3.5-5.1); PREALBUMIN 9.2 MG/DL (19-36); SODIUM 139 MMOL/L (135-145); TOTAL CARBON DIOXIDE 27.5 MMOL/L (24-32); TOTAL PROTEIN 5.8 G/DL (6.4-8.2); TRIGLYCERIDES 73 MG/DL (20-135); eGFR 70 ML/MIN
--- NOTE | 2018-07-06 15:01 | NUR ---
Per further discussion with pharmacy PPN recommendations are now 3:1 Climimix E 4.25/5 2 L bag with 200 mL 20% intralipids to provide total volume of 3,000 mL/day, 1472 kcal, 116 g protein, and 136 g dextrose. Dextrose load 0.86 mg/kg/min. Continues to be unable to meet full estimated energy needs however meets estimated protein needs. Will continue to follow. PPN consult: Patient continues with post-op ileus with LBM 06/30. PPN recommendations below, d/w pharmacy. Unable to meet patient's estimated nutrient needs with PPN. Patient's diet has been reduced back to clear liquid diet. Relistor and Reglan recently added to bowel care regime. Recommend continuing with liquid diet in order to stimulate GI tract while receiving bowel care. Will continue to follow. Recommendations: 1) PPN with 3:1 Climimix E 4.25/5 2 L bag with 200 mL 20% intralipids to provide total volume of 3,000 mL/day, 1472 kcal, 116 g protein, and 136 g dextrose. Dextrose load 0.86 mg/kg/min. 2) Prealbumin q / 3) Daily wt 4) Advance diet to heart healthy as medically indicated 5) Monitor need for additional bowel care Addendum: 07/06/18 at [address] Amended: Links added. Addendum: 07/06/18 at [address] Goal rate for PPN is 125 mL/hr
--- NOTE | 2018-07-06 16:25 | NUR ---
Extended PIV inserted to right upper arm cepalic vein x 1 attempt using ultrasound. Jesse well Addendum: 07/06/18 at 1626 by Cristine Mckinley RN Amended: Links added.
--- NOTE | 2018-07-06 17:02 | NUR ---
MARU DC'd per Dr Osborne's order. Pt tolerated well, cannula intact.
--- NOTE | 2018-07-06 18:47 | NUR ---
Problems reprioritized. Patient report given, questions answered & plan of care reviewed with SAJAN Rodriguez.
[2018-07-06 19:00] VITALS: BP 130/55
--- NOTE | 2018-07-06 20:00 | NUR ---
Pt has elected not to have his Reglan at this time. Pt states that he has been up several times having multiple bowel movements, one of which he was not able to get OOB fast enough and had an accident in bed. Bowel sounds are present as well. Addendum: 07/07/18 at 0443 by Ale Harrington RN Amended: Links added.
[2018-07-06] MEDS: atorvastatin 20mg tablet PO SCH (20:11)
[2018-07-06] MEDS ORDERED: fat emulsion IV 200 ML, MVI, adult No.4 with vit. K 10 ML, Trace element-5 inj. 1 ML in... IV SCH ×4 (21:00)
[2018-07-06] MEDS ORDERED: Dextrose 10%-water IV solution 1,000 ML IV PRN (21:00)
[2018-07-07] VITALS: BP 140/63
[2018-07-07] MEDS: piperacillin/tazo 4.5gm/100ml 100 ML IV SCH ×4 (00:16→23:05)
[2018-07-07] MEDS: metoclopramide 5 mg/ml inj IV SCH ×4 (02:00→19:09)
--- NOTE | 2018-07-07 02:00 | NUR ---
Multiple BMs have continued this shift. However he states that he is no longer nauseated and he feels so much better. Pt opted not to have Reglan, he understands it will need to be reevaluated as bowel function returns. Addendum: 07/07/18 at 0451 by Ale Harrington RN Amended: Links added.
[2018-07-07 05:27] LABS: ALANINE AMINOTRANSFERASE 54 U/L (12-78); ALBUMIN 2.1 G/DL (3.4-5.0); ALBUMIN/GLOBULIN RATIO 0.6 (1.1-1.5); ALKALINE PHOSPHATASE 56 IU/L (46-116); ANION GAP 10 (8-16); ASPARTATE AMINO TRANSFERASE 52 U/L (10-37); BILIRUBIN,TOTAL 0.5 MG/DL (0.1-1.0); BLOOD UREA NITROGEN 18 MG/DL (7-18); BUN/CREATININE RATIO 16.8 (5.4-32.0); CHLORIDE 104 MMOL/L (99-107); CREATININE 1.07 MG/DL (0.60-1.10); GLUCOSE 107 MG/DL (70-104); MAGNESIUM 1.5 MG/DL (1.5-2.4); PHOSPHORUS 2.8 MG/DL (2.3-4.5); POTASSIUM 3.7 MMOL/L (3.5-5.1); SODIUM 140 MMOL/L (135-145); TOTAL CARBON DIOXIDE 26.5 MMOL/L (24-32); TOTAL PROTEIN 5.7 G/DL (6.4-8.2); eGFR 69 ML/MIN
[2018-07-07] MEDS: potassium Cl 20mEq in NS 1,000 ML IV SCH (05:29)
--- NOTE | 2018-07-07 06:29 | NUR ---
Problems reprioritized. Patient report given, questions answered & plan of care reviewed with Tabitha MOELLER. Addendum: 07/07/18 at 0630 by Ale Harrington RN Amended: Links added.
--- NOTE | 2018-07-07 06:35 | NUR ---
Patient in room [facility]. I have received report from SAJAN Aguilera and had the opportunity to ask questions and assume patient care.
[2018-07-07 07:00] VITALS: BP 126/58
[2018-07-07] MEDS: methylnaltrexone br 12mg/0.6ml inj***SubQ only SQ SCH (08:00)
[2018-07-07] MEDS: docusate sod 100mg capsule PO SCH ×2 (08:00→19:09)
[2018-07-07] MEDS: pantoprazole 40 MG vial IV SCH (08:09)
[2018-07-07] MEDS: enoxaparin 30mg/0.3ml syringe SUBCUT SCH ×2 (08:10→20:44)
[2018-07-07] MEDS: HYDROchlorothiazide 25mg tablet PO SCH (08:11)
[2018-07-07] MEDS: losartan 50mg tablet PO SCH (08:11)
[2018-07-07] MEDS: tamsulosin 0.4mg capsule PO SCH (08:11)
[2018-07-07] MEDS: sotalol 80mg tablet PO SCH ×2 (08:11→20:45)
[2018-07-07] MEDS: lactobacillus rhamnosus 10,000 MMU CELLS/CAPSULE PO SCH ×2 (08:11→20:46)
--- NOTE | 2018-07-07 10:20 | NUR ---
PPN DC'd per Dr Boyd. Full liquid diet ordered for lunch. Advance as tolerated to regular diet.
[2018-07-07 11:16] VITALS: BP 116/58
--- NOTE | 2018-07-07 18:54 | NUR ---
Problems reprioritized. Patient report given, questions answered & plan of care reviewed with SAJAN Aguilera.
[2018-07-07 19:00] VITALS: BP 132/72
[2018-07-07] MEDS: atorvastatin 20mg tablet PO SCH (20:45)
[2018-07-08] VITALS: BP 143/58
--- NOTE | 2018-07-08 01:03 | NUR ---
Pt got up to use bathroom, medial aspect of abdo incision draining small amt of serosanguineous drainage, 4x4 place with silk tape clear enough to monitor drainage. Will continue to monitor Addendum: 07/08/18 at 0106 by Ale Harrington RN Amended: Links added.
[2018-07-08] MEDS: metoclopramide 5 mg/ml inj IV SCH ×2 (01:13→07:07)
[2018-07-08] MEDS: potassium Cl 20mEq in NS 1,000 ML IV SCH (01:48)
[2018-07-08 05:54] LABS: ALANINE AMINOTRANSFERASE 39 U/L (12-78); ALBUMIN 1.9 G/DL (3.4-5.0); ALBUMIN/GLOBULIN RATIO 0.6 (1.1-1.5); ALKALINE PHOSPHATASE 55 IU/L (46-116); ANION GAP 9 (8-16); ASPARTATE AMINO TRANSFERASE 42 U/L (10-37); BILIRUBIN,TOTAL 0.5 MG/DL (0.1-1.0); BLOOD UREA NITROGEN 12 MG/DL (7-18); BUN/CREATININE RATIO 14.6 (5.4-32.0); CHLORIDE 104 MMOL/L (99-107); CREATININE 0.82 MG/DL (0.60-1.10); GLUCOSE 100 MG/DL (70-104); MAGNESIUM 1.5 MG/DL (1.5-2.4); POTASSIUM 3.6 MMOL/L (3.5-5.1); SODIUM 141 MMOL/L (135-145); TOTAL CARBON DIOXIDE 27.8 MMOL/L (24-32); eGFR > 90 ML/MIN
--- NOTE | 2018-07-08 06:25 | NUR ---
Patient in room [facility]. I have received report from SAJAN Aguilera and had the opportunity to ask questions and assume patient care.
[2018-07-08 06:30] VITALS: BP 140/59
--- NOTE | 2018-07-08 06:34 | NUR ---
Problems reprioritized. Patient report given, questions answered & plan of care reviewed with Malia MOELLER. Addendum: 07/08/18 at 0635 by Ale Harrington RN Amended: Links added.
[2018-07-08] MEDS: docusate sod 100mg capsule PO SCH (07:07)
[2018-07-08] MEDS: enoxaparin 30mg/0.3ml syringe SUBCUT SCH (08:24)
[2018-07-08] MEDS: sotalol 80mg tablet PO SCH (08:25)
[2018-07-08] MEDS: lactobacillus rhamnosus 10,000 MMU CELLS/CAPSULE PO SCH (08:26)
[2018-07-08] MEDS: pantoprazole 40 MG vial IV SCH (08:26)
[2018-07-08] MEDS: HYDROchlorothiazide 25mg tablet PO SCH (08:26)
[2018-07-08] MEDS: losartan 50mg tablet PO SCH (08:26)
[2018-07-08] MEDS: piperacillin/tazo 4.5gm/100ml 100 ML IV SCH (08:27)
[2018-07-08] MEDS: tamsulosin 0.4mg capsule PO SCH (08:27)
[2018-07-08] MEDS ORDERED: AMOX-580 PO (10:32)
[2018-07-08 11:30] VITALS: BP 144/57
--- NOTE | 2018-07-08 16:20 | NUR ---
DC inst provided to pt & pt's . IVs DC'd, tips intact. All belongings sent w/pt. Pt ambulated w/PCT to front lobby.
[2018-07-08] MEDS ORDERED: amox tr/potassium clavulanate 875/125mg TAB PO SCH (17:30)
== END 2018-07-08 16:25 | disposition home or self-care (01) | DRG 853 ==
LOC: ER 16:30 → SUR 3N 22:28
PROVIDERS: ADMIT Family Medicine; ATTEND Surgery
PROC: 0DJD4ZZ Inspection of Lower Intestinal Tract, Percutaneous Endoscopic Approach (ICD-10-PCS; 2018-06-29)
PROC: 0W9G0ZZ Drainage of Peritoneal Cavity, Open Approach (ICD-10-PCS; 2018-06-29)
PROC: 0DTJ0ZZ Resection of Appendix, Open Approach (ICD-10-PCS; principal; 2018-06-29 10:44)
PROC: BW211ZZ Computerized Tomography (CT Scan) of Abdomen and Pelvis using Low Osmolar Contrast (ICD-10-PCS; 2018-07-03)
DX: A41.9 Sepsis, unspecified organism (principal); K35.33 Acute appendicitis with perforation, localized peritonitis, and gangrene, with abscess; E87.1 Hypo-osmolality and hyponatremia; N39.0 Urinary tract infection, site not specified; K56.7 Ileus, unspecified; E87.6 Hypokalemia; I48.0 Paroxysmal atrial fibrillation; E86.0 Dehydration; I10 Essential (primary) hypertension; I25.10 Atherosclerotic heart disease of native coronary artery without angina pectoris; N40.0 Benign prostatic hyperplasia without lower urinary tract symptoms; F17.210 Nicotine dependence, cigarettes, uncomplicated; Z53.31 Laparoscopic surgical procedure converted to open procedure; Z79.01 Long term (current) use of anticoagulants; Z79.899 Other long term (current) drug therapy; Z82.3 Family history of stroke; Z82.5 Family history of asthma and other chronic lower respiratory diseases
CPT/HCPCS: 36415; 74176; 74177; 80048; 80053; 80202; 81001; 82948; 83605; 83690; 83735; 83880; 84100; 84132; 84134; 84145; 84478; 85025; 85610; 87040; 87070; 87088; 88304; 93005; 96365; 96366; 96367; 96375; 96376; 99285; A4315; A6251; A6253; A6266; A6449; A7000; C9113; G0378; J1100; J1170; J1580; J1650; J2001; J2250; J2270; J2405; J2543; J2704; J2710; J2765; J3010; J3370; J3430; J3490; J7030; J7120; Q9963; Q9967

== ENCOUNTER 2019-08-24 18:31 | Emergency (ER) | payer MEDICARE ==
[~2019-08-24] VITALS: Ht 182.9 cm; Wt 113.0 kg
[~2019-08-24 18:31] MED LIST changes: +AMOX-580 PO; +COU5T PO; -DILT180C95 PO; -FAMO20TA8 PO; -NAPR-56 PO; -QUIN324C PO; +SOTA120T; +TAMS0.4C32
[2019-08-24 19:21] LABS: RED BLOOD COUNT 4.66 X10'6 (4.70-6.10); WHITE BLOOD COUNT 6.4 X10'3 (4.5-11.0)
[2019-08-24 19:22] LABS: BASOPHILS # (AUTO) 0.1 X10'3 (0-0.2); BASOPHILS % (AUTO) 0.8 % (0-1); EOSINOPHILS % (AUTO) 0.8 % (0-6); HEMATOCRIT 42.1 % (42.0-52.0); HEMOGLOBIN 14.5 g/dl (14.0-17.9); LYMPHOCYTES # (AUTO) 0.5 X10'3 (1.1-4.8); LYMPHOCYTES % (AUTO) 8.4 % (21-51); MEAN CORPUSCULAR HEMOGLOBIN 31.1 PG (27.0-31.0); MEAN CORPUSCULAR HGB CONC 34.5 g/dL (33.0-36.5); MEAN CORPUSCULAR VOLUME 90.3 FL (78-98); MEAN PLATELET VOLUME 7.9 FL (7.4-10.4); NEUTROPHILS # (AUTO) 4.7 X10'3 (1.8-7.7); PLATELET COUNT 130 X10'3 (140-440)
[2019-08-24] MEDS ORDERED: normal saline 1000ML IV soln IVB ONE (19:25)
[2019-08-24] MEDS ORDERED: albuterol 2.5 MG/3 ML nebule NEB ONE (19:25)
[2019-08-24] MEDS ORDERED: acetaminophen 325mg tablet PO ONE (19:25)
[2019-08-24 19:30] LABS: ALANINE AMINOTRANSFERASE 21 U/L (12-78); ALBUMIN 3.5 G/DL (3.4-5.0); ALKALINE PHOSPHATASE 81 IU/L (46-116); ANION GAP 5 (8-16); ASPARTATE AMINO TRANSFERASE 17 U/L (10-37); BILIRUBIN,TOTAL 0.5 MG/DL (0.1-1.0); BLOOD UREA NITROGEN 22 MG/DL (7-18); CALCIUM 8.4 MG/DL (8.5-10.1); CHLORIDE 103 MMOL/L (99-107); CREATININE 1.05 MG/DL (0.60-1.10); GLUCOSE 134 MG/DL (70-104); POTASSIUM 3.6 MMOL/L (3.5-5.1); SODIUM 137 MMOL/L (135-145); TOTAL CARBON DIOXIDE 28.9 MMOL/L (24-32); TOTAL PROTEIN 6.9 G/DL (6.4-8.2); eGFR 70 ML/MIN
[2019-08-24 20:13] VITALS: BP 161/78
--- NOTE | 2019-08-24 20:26 | NUR ---
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
[2019-08-24] MEDS ORDERED: ipratropium/albuterol 3ml nebule NEB ONE (20:55)
== END 2019-08-24 21:19 | disposition home or self-care (01) ==
LOC: ER 18:33
DX: J11.1 Influenza due to unidentified influenza virus with other respiratory manifestations (principal); I10 Essential (primary) hypertension; Z79.01 Long term (current) use of anticoagulants; Z79.899 Other long term (current) drug therapy
CPT/HCPCS: 36415; 71046; 80053; 83605; 83880; 84145; 85025; 87040; 87502; 87503; 94640; 99284; J7030; 94760

== ENCOUNTER 2024-06-30 15:32 | Inpatient (IN) | payer MEDICARE ==
[~2024-06-30] VITALS: Ht 182.9 cm; Wt 125.0 kg
[~2024-06-30 15:32] MED LIST changes: -COU5T PO; +LOSA-424 PO; -LOSA1TAB15 PO; +WARF-113 PO
[2024-06-30 16:20] LABS: BASOPHILS # (AUTO) 0.1 X10'3 (0-0.2); BASOPHILS % (AUTO) 0.4 % (0-1); EOSINOPHILS % (AUTO) 6.8 % (0-6); HEMATOCRIT 38.5 % (42.0-52.0); HEMOGLOBIN 12.7 g/dl (14.0-17.9); LYMPHOCYTES % (AUTO) 6.7 % (21-51); MEAN CORPUSCULAR HEMOGLOBIN 30.3 PG (27.0-31.0); MEAN CORPUSCULAR HGB CONC 32.9 g/dL (33.0-36.5); MEAN CORPUSCULAR VOLUME 92.2 FL (78-98); MEAN PLATELET VOLUME 7.4 FL (7.4-10.4); MONOCYTES # (AUTO) 1.9 X10'3 (0-0.9); NEUTROPHILS # (AUTO) 10.6 X10'3 (1.8-7.7); NEUTROPHILS % (AUTO) 73.1 % (42-75); PLATELET COUNT 215 X10'3 (140-440); RED BLOOD COUNT 4.18 X10'6 (4.70-6.10); WHITE BLOOD COUNT 14.6 X10'3 (4.5-11.0)
[2024-06-30 16:45] LABS: ALANINE AMINOTRANSFERASE 21 U/L (12-78); ALBUMIN 3.1 G/DL (3.4-5.0); ALBUMIN/GLOBULIN RATIO 0.8 (1.1-1.5); ALKALINE PHOSPHATASE 66 IU/L (46-116); ANION GAP 7 (8-16); ASPARTATE AMINO TRANSFERASE 16 U/L (10-37); BILIRUBIN,TOTAL 0.9 MG/DL (0.1-1.0); BLOOD UREA NITROGEN 18 MG/DL (7-18); BUN/CREATININE RATIO 17.8 (10.0-20.0); CALCIUM 8.9 MG/DL (8.5-10.1); CHLORIDE 98 MMOL/L (99-107); CREATININE 1.01 MG/DL (0.60-1.10); GLUCOSE 139 MG/DL (70-104); POTASSIUM 3.8 MMOL/L (3.5-5.1); SODIUM 137 MMOL/L (135-145); TOTAL CARBON DIOXIDE 31.7 MMOL/L (24-32); eCRCL 72 ML/MIN; eGFR 72 ML/MIN
[2024-06-30 16:46] LABS: PRO BRAIN NATRIURETIC PEPTIDE 593 PG/ML (0-125)
[2024-06-30 19:41] LABS: D-DIMER 2.04 MG/L FEU (0-0.50)
[2024-06-30] MEDS ORDERED: iohexol 350MG/ML 100ml bottle IV ONE (19:57)
[2024-06-30] MEDS ORDERED: enoxaparin 100mg/ml syringe SUBCUT ONE (22:15)
[2024-06-30] MEDS: enoxaparin 60mg/0.6ml syringe SUBCUT ONE (22:20)
[2024-06-30 22:29] LABS: INR 1.1 INR; PROTHROMBIN TIME 11.4 SECONDS (9.0-12.0)
[2024-06-30] MEDS ORDERED: magnesium sulf-water 2g/50mL 50 ML IV PRN (23:10)
[2024-06-30] MEDS ORDERED: potassium Cl 20 mEq SR tablet PO PRN ×2 (23:10)
[2024-06-30] MEDS ORDERED: mag hydrox/Alum hydrox/simeth 30ml oral suspension PO PRN (23:10)
[2024-06-30] MEDS ORDERED: magnesium sulf-water 4G/100mL 100 ML IV PRN (23:10)
[2024-06-30] MEDS ORDERED: potassium Cl 40MEQ/1/2NS 520ml 520 ML IV PRN (23:10)
[2024-06-30] MEDS ORDERED: magnesium hydroxide 30ml (MOM) UD suspension PO PRN (23:10)
[2024-06-30] MEDS ORDERED: morphine 2 MG/ML inj. syringe IV PRN ×2 (23:10)
[2024-06-30] MEDS ORDERED: magnesium Cl slow-release 64mg tablet PO PRN (23:10)
[2024-06-30] MEDS ORDERED: ondansetron/PF 4mg/2ml inj IV PRN (23:10)
[2024-06-30] MEDS: PERFLUTREN PROTEIN-A MICROSPHR (Optison) 0.22 MG/ML 3ML VIAL IV ONE (23:31)
[2024-06-30] MEDS: MESSAGE TO NURSING IV ONE (23:45)
[2024-07-01] VITALS (8 sets, daily range): BP systolic 120–144; BP diastolic 52–76; PULSE 66–79; RESP 16–26; TEMP 98.2–98.6; O2SAT 90–94
[2024-07-01 00:27] LABS: BASOPHILS # (AUTO) 0.1 X10'3 (0-0.2); BASOPHILS % (AUTO) 0.5 % (0-1); EOSINOPHILS # (AUTO) 0.6 X10'3 (0-0.9); EOSINOPHILS % (AUTO) 4.6 % (0-6); HEMOGLOBIN 12.3 g/dl (14.0-17.9); LYMPHOCYTES # (AUTO) 1.3 X10'3 (1.1-4.8); LYMPHOCYTES % (AUTO) 9.4 % (21-51); MEAN CORPUSCULAR HEMOGLOBIN 30.3 PG (27.0-31.0); MEAN CORPUSCULAR HGB CONC 33.2 g/dL (33.0-36.5); MEAN CORPUSCULAR VOLUME 91.3 FL (78-98); MEAN PLATELET VOLUME 7.1 FL (7.4-10.4); MONOCYTES # (AUTO) 1.8 X10'3 (0-0.9); MONOCYTES % (AUTO) 13.2 % (2-12); NEUTROPHILS # (AUTO) 9.8 X10'3 (1.8-7.7); NEUTROPHILS % (AUTO) 72.3 % (42-75); PLATELET COUNT 213 X10'3 (140-440); RED BLOOD COUNT 4.05 X10'6 (4.70-6.10); RED CELL DISTRIBUTION WIDTH 13.8 % (11.5-14.5); WHITE BLOOD COUNT 13.5 X10'3 (4.5-11.0)
[2024-07-01 00:55] LABS: INR 1.1 INR
[2024-07-01] MEDS ORDERED: ipratropium/albuterol 3ml nebule NEB PRN (01:40)
[2024-07-01] MEDS: heparin 10,000 units/1 ML INJ IV ONE (01:45)
[2024-07-01] MEDS: normal saline 1000ml 1,000 ML IV SCH (01:48)
[2024-07-01] MEDS: heparin 25,000 UNIT/250ml bag 250 ML IV PRN (01:55)
[2024-07-01 02:04] LABS: PROTHROMBIN TIME 11.4 SECONDS (9.0-12.0)
[2024-07-01 03:40] LABS: EOSINOPHILS # (AUTO) 0.7 X10'3 (0-0.9); EOSINOPHILS % (AUTO) 5.7 % (0-6)
[2024-07-01 03:41] LABS: BASOPHILS # (AUTO) 0.1 X10'3 (0-0.2); BASOPHILS % (AUTO) 0.6 % (0-1); HEMATOCRIT 34.8 % (42.0-52.0); HEMOGLOBIN 11.7 g/dl (14.0-17.9); LYMPHOCYTES # (AUTO) 1.3 X10'3 (1.1-4.8); MEAN CORPUSCULAR HGB CONC 33.7 g/dL (33.0-36.5); MEAN CORPUSCULAR VOLUME 91.8 FL (78-98); MONOCYTES # (AUTO) 1.8 X10'3 (0-0.9); MONOCYTES % (AUTO) 14.4 % (2-12); NEUTROPHILS # (AUTO) 8.8 X10'3 (1.8-7.7); NEUTROPHILS % (AUTO) 69.3 % (42-75); PLATELET COUNT 196 X10'3 (140-440); RED BLOOD COUNT 3.79 X10'6 (4.70-6.10); RED CELL DISTRIBUTION WIDTH 14.1 % (11.5-14.5); WHITE BLOOD COUNT 12.7 X10'3 (4.5-11.0)
[2024-07-01 04:07] LABS: ALANINE AMINOTRANSFERASE 17 U/L (12-78); ALBUMIN 2.7 G/DL (3.4-5.0); ALBUMIN/GLOBULIN RATIO 0.8 (1.1-1.5); ALKALINE PHOSPHATASE 54 IU/L (46-116); ANION GAP 10 (8-16); ASPARTATE AMINO TRANSFERASE 16 U/L (10-37); BILIRUBIN,TOTAL 0.8 MG/DL (0.1-1.0); BLOOD UREA NITROGEN 18 MG/DL (7-18); BUN/CREATININE RATIO 20.7 (10.0-20.0); CALCIUM 8.5 MG/DL (8.5-10.1); CHLORIDE 99 MMOL/L (99-107); CHOL/HDL RATIO 1.9 (0.00-4.99); CHOLESTEROL 72 MG/DL (0-200); CREATININE 0.87 MG/DL (0.60-1.10); GLUCOSE 125 MG/DL (70-104); HDL CHOLESTEROL 38 MG/DL (35-60); LDL CHOLESTEROL 38 MG/DL (50-100); MAGNESIUM 2.3 MG/DL (1.5-2.4); POTASSIUM 3.6 MMOL/L (3.5-5.1); SODIUM 137 MMOL/L (135-145); THYROID STIMULATING HORMONE 0.73 ulU/ml (0.34-4.50); TOTAL CARBON DIOXIDE 27.9 MMOL/L (24-32); TOTAL PROTEIN 6.3 G/DL (6.4-8.2); TRIGLYCERIDES 214 MG/DL (20-135); eCRCL 83 ML/MIN; eGFR 86 ML/MIN
[2024-07-01 04:25] LABS: HEMOGLOBIN A1C 6.3 % (4.5-6.2)
[2024-07-01] MEDS: K and/or MAG REPLACEMENT MC SCH (08:00)
[2024-07-01] MEDS: MESSAGE TO NURSING IV ONE ×3 (09:19→23:14)
[2024-07-01] MEDS: acetaminophen 325mg tablet PO PRN (13:38)
[2024-07-01] MEDS ORDERED: MESSAGE TO NURSING IV ONE (23:10)
[2024-07-02 02:00] VITALS: BP 141/68; PULSE 76; RESP 20; TEMP 98; O2SAT 95
[2024-07-02] MEDS: acetaminophen 325mg tablet PO PRN (02:55)
[2024-07-02 05:47] LABS: BASOPHILS # (AUTO) 0.1 X10'3 (0-0.2); BASOPHILS % (AUTO) 0.7 % (0-1); EOSINOPHILS # (AUTO) 0.7 X10'3 (0-0.9); EOSINOPHILS % (AUTO) 9.2 % (0-6); HEMOGLOBIN 11.3 g/dl (14.0-17.9); LYMPHOCYTES # (AUTO) 1.2 X10'3 (1.1-4.8); LYMPHOCYTES % (AUTO) 15.1 % (21-51); MEAN CORPUSCULAR HGB CONC 34.3 g/dL (33.0-36.5); MEAN CORPUSCULAR VOLUME 90.5 FL (78-98); MEAN PLATELET VOLUME 7.4 FL (7.4-10.4); MONOCYTES # (AUTO) 0.9 X10'3 (0-0.9); MONOCYTES % (AUTO) 11.2 % (2-12); NEUTROPHILS # (AUTO) 5.2 X10'3 (1.8-7.7); NEUTROPHILS % (AUTO) 63.8 % (42-75); PLATELET COUNT 184 X10'3 (140-440); RED BLOOD COUNT 3.65 X10'6 (4.70-6.10); RED CELL DISTRIBUTION WIDTH 13.7 % (11.5-14.5); WHITE BLOOD COUNT 8.1 X10'3 (4.5-11.0)
[2024-07-02 06:05] LABS: ALANINE AMINOTRANSFERASE 13 U/L (12-78); ALBUMIN 2.5 G/DL (3.4-5.0); ALBUMIN/GLOBULIN RATIO 0.7 (1.1-1.5); ALKALINE PHOSPHATASE 55 IU/L (46-116); ANION GAP 6 (8-16); ASPARTATE AMINO TRANSFERASE 10 U/L (10-37); BILIRUBIN,TOTAL 0.4 MG/DL (0.1-1.0); BLOOD UREA NITROGEN 15 MG/DL (7-18); BUN/CREATININE RATIO 17.9 (10.0-20.0); CALCIUM 8.8 MG/DL (8.5-10.1); CHLORIDE 100 MMOL/L (99-107); CREATININE 0.84 MG/DL (0.60-1.10); GLUCOSE 118 MG/DL (70-104); MAGNESIUM 1.6 MG/DL (1.5-2.4); POTASSIUM 3.9 MMOL/L (3.5-5.1); SODIUM 137 MMOL/L (135-145); TOTAL CARBON DIOXIDE 31.2 MMOL/L (24-32); TOTAL PROTEIN 6.1 G/DL (6.4-8.2); eCRCL 86 ML/MIN; eGFR 90 ML/MIN
[2024-07-02 06:25] LABS: INR 1.1 INR; PROTHROMBIN TIME 11.8 SECONDS (9.0-12.0)
[2024-07-02] MEDS: MESSAGE TO NURSING IV ONE (06:40)
[2024-07-02] MEDS: heparin 10,000 units/1 ML INJ IV PRN (06:59)
[2024-07-02 07:00] VITALS: BP 141/92; PULSE 63; RESP 16; TEMP 97.8; O2SAT 94
[2024-07-02 08:00] VITALS: RESP 24; O2SAT 92
[2024-07-02] MEDS: tamsulosin 0.4mg capsule PO SCH (08:00)
[2024-07-02] MEDS: sotalol 80mg tablet PO SCH (09:37)
[2024-07-02] MEDS: sotalol HCl 40mg (1/2 tablet) PO SCH (09:38)
[2024-07-02] MEDS: losartan 50mg tablet PO SCH (09:40)
[2024-07-02] MEDS ORDERED: ASPI-1071 PO (10:50)
[2024-07-02] MEDS ORDERED: COL0.6T PO (10:50)
[2024-07-02 11:00] VITALS: BP 123/42; PULSE 54; RESP 14; TEMP 98.6; O2SAT 93
[2024-07-02] MEDS: aspirin 81mg, enteric-coated 1 TAB TABLET.DR PO ONE (12:00)
[2024-07-02] MEDS: colchicine 0.6mg tablet PO ONE (12:00)
[2024-07-02] MEDS ORDERED: PRED10TA23 PO (19:04)
[2024-07-02] MEDS ORDERED: atorvastatin 20mg tablet PO SCH (21:00)
[2024-07-03] MEDS ORDERED: aspirin 81mg, enteric-coated 1 TAB TABLET.DR PO SCH (08:00)
[2024-07-03] MEDS ORDERED: colchicine 0.6mg tablet PO SCH (08:00)
== END 2024-07-02 15:08 | disposition home or self-care (01) | DRG 176 ==
LOC: ER 15:33 → ED HOLD 23:12 → PCU 3S 07-01 07:19
PROVIDERS: ADMIT Internal Medicine Critical Care Medicine; ATTEND Family Medicine
PROC: B32T1ZZ Computerized Tomography (CT Scan) of Left Pulmonary Artery using Low Osmolar Contrast (ICD-10-PCS; principal; 2024-06-30)
PROC: B3201ZZ Computerized Tomography (CT Scan) of Thoracic Aorta using Low Osmolar Contrast (ICD-10-PCS; 2024-06-30)
PROC: B32S1ZZ Computerized Tomography (CT Scan) of Right Pulmonary Artery using Low Osmolar Contrast (ICD-10-PCS; 2024-06-30)
DX: I26.99 Other pulmonary embolism without acute cor pulmonale (principal); D68.69 Other thrombophilia; J90 Pleural effusion, not elsewhere classified; I50.32 Chronic diastolic (congestive) heart failure; R65.10 Systemic inflammatory response syndrome (SIRS) of non-infectious origin without acute organ dysfunction; I48.0 Paroxysmal atrial fibrillation; I11.0 Hypertensive heart disease with heart failure; E78.5 Hyperlipidemia, unspecified; R09.02 Hypoxemia; J44.9 Chronic obstructive pulmonary disease, unspecified; R73.03 Prediabetes; R79.89 Other specified abnormal findings of blood chemistry; Z79.01 Long term (current) use of anticoagulants; Z86.73 Personal history of transient ischemic attack (TIA), and cerebral infarction without residual deficits; Z79.899 Other long term (current) drug therapy; Z90.49 Acquired absence of other specified parts of digestive tract
CPT/HCPCS: 36415; 71045; 71275; 80053; 80061; 83036; 83735; 83880; 84443; 84484; 85025; 85379; 85610; 85730; 87081; 93005; 93306; 93970; 94760; 99291; G0378; J1644; J7030; Q9967